=== PATIENT | male | born 1995 | race Caucasian/White ===

== ENCOUNTER 2016-07-27 19:42 | Emergency (ER) | payer BC ==
[2016-07-27 19:57] VITALS: BP 131/72; PULSE 72; TEMP 98; BMI 29.0
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
== END 2016-07-27 20:51 | disposition home or self-care (01) ==
LOC: FER 19:42
PROC: 0HQKXZZ Repair Right Lower Leg Skin, External Approach (ICD-10-PCS; principal; 2016-07-27)
DX: S81.811A Laceration without foreign body, right lower leg, initial encounter (principal); W21.89XA Striking against or struck by other sports equipment, initial encounter; Y93.55 Activity, bike riding; Y92.410 Unspecified street and highway as the place of occurrence of the external cause
CPT/HCPCS: 99281-25

== ENCOUNTER 2016-08-06 11:59 | Emergency (ER) | payer BC ==
[2016-08-06 12:06] VITALS: BP 109/67; PULSE 64; TEMP 98; BMI 26.4
--- NOTE | 2016-08-06 12:07 | PDOC ---
Suture Removal/Wound Check HPI - History of Present Illness Chief Complaint: Suture/Staple Removal (other) Stated Complaint: SUTURE REMOVAL Time Seen by Provider: 08/06/16 12:02 History Source: Yes: Patient Exam Limitations: Yes: No Limitations Past History - Past Medical History Allergies/Adverse Reactions: Allergies No Known Allergies Allergy (Verified 08/06/16 12:02) Home Medications: Ambulatory Orders Cholecalciferol (Vitamin D3) [Vitamin D3] 5,000 unit PO WEEKLY 07/27/16 Levothyroxine [Synthroid -] 125 mcg PO DAILY 07/27/16 - Immunization History Immunizations Up to Date: Yes Tetanus Status: Less than 5 years - Social History Smoking Status: Never smoked Medical Decision Making - Medical Decision Making 08/06/16 12:06 The patient is a 20-year-old male who presents for the removal of 5 sutures from his right lower extremity Area was cleaned and prepped with dilute Betadine Wound was well-healed, with edges well approximated 5 sutures were removed using an 11 blade scalpel with the blade facing upwards and a fine tweezer Wound remained well approximated There is no evidence of wound infection Clinical impression: Suture removal I discussed the physical exam findings, ancillary test results and final diagnoses with the patient. I answered all of the patient's questions. The patient was satisfied with the care received and felt comfortable with the discharge plan and treatment plan. The patient will call their primary care physician within 24 hours to arrange follow-up and will return to the Emergency Department with any new, persistent or worsening symptoms. 08/06/16 12:07 *DC/Admit/Observation/Transfer Diagnosis at time of Disposition: Laceration of right lower leg, Encounter for removal of sutures - Discharge Dispostion Disposition: HOME Condition at time of disposition: Improved - Patient Instructions Printed Discharge Instructions: DI for Suture Removal Additional Instructions: Return to the emergency department immediately with ANY new, persistent or worsening symptoms. You MUST call and follow up with your doctor tomorrow. Please make sure your doctor reviews the results of your emergency department evaluation.
== END 2016-08-06 12:23 | disposition home or self-care (01) ==
LOC: FER 11:59
DX: Z48.02 Encounter for removal of sutures (principal)
CPT/HCPCS: 99281-25

== ENCOUNTER 2020-01-17 16:40 | Emergency (ER) | payer BC | END 2020-01-17 17:18 | disposition home or self-care (01) | LOC: JVIRT 16:40 | DX: U07.1 COVID-19 (principal) | CPT/HCPCS: C9803; Q3014-GT; U0003 ==